=== PATIENT | female | born 1990 | race Hispanic/Latino ===

== ENCOUNTER 2019-10-07 15:14 | Outpatient (CLI) | payer OTHER ==
--- NOTE | 2019-10-07 16:05 | ULT ---
Exam: Pelvic ultrasound HISTORY: First trimester . Reported demise at physician's clinic. COMPARISON: None TECHNIQUE: Multiple grayscale and color Doppler images were obtained in a transabdominal and transvag inal pelvic ultrasound. Spectral analysis of the Doppler waveforms of the ovaries were performed. FINDINGS: There is a fluid collection seen within the endometrial canal. A single intrauterine gestation is pre sent. However, no heart tones are detected by cardiac Doppler. In addition, there is evidence of diffuse subcutaneous edema involving the fetus suggesting hydrops. A small irregular subchor ionic hypoechoic collection is seen in the lower uterine segment measuring 2.1 cm x 0.6 cm suggestive of a small subchorionic hemorrhage. LEFT OVARY: A small anechoic 1.6 cm anechoic lesion is seen in the left ovary most suggestive of rick nant follicle/small cyst. Arterial flow is documented in the left ovary. RIGHT OVARY: Normal flow, without focal mass. IMPRESSION: 1. Findings suggestive of demise involving a single intrauterine gestation. No heart tone s are detected. Subcutaneous edema is seen involving the fetus suggesting hydrops. 2. Small subchorionic hemorrhage. 3. Dominant left ovarian follicle/cyst. 4. Above findings were discussed with Silvia and Dr. [facility]ora's clinic on 10/07/2019 at 1558 hours.
== END 2019-10-07 15:15 | disposition home or self-care (01) ==
LOC: MERGE 15:14 → ULT 15:14
PROVIDERS: ATTEND Nurse Practitioner
DX: Z34.81 Encounter for supervision of other normal pregnancy, first trimester (principal); N83.202 Unspecified ovarian cyst, left side
CPT/HCPCS: 76856

== ENCOUNTER 2022-06-10 14:27 | Outpatient (CLI) | payer OTHER | END 2022-06-10 14:28 | disposition home or self-care (01) | LOC: BICULT 14:27 | PROVIDERS: ATTEND Family Medicine | DX: Z34.83 Encounter for supervision of other normal pregnancy, third trimester (principal); Z3A.33 33 weeks gestation of pregnancy | CPT/HCPCS: 76805 ==